=== PATIENT | female | born 1945 | race Two or more races ===

== ENCOUNTER 2017-07-03 14:51 | Emergency (ER) | payer OTHER, MEDICARE ==
[2017-07-03] MEDS ORDERED: Morphine 2 MG/ML Syringe IVPUSH ONE (15:09)
[2017-07-03] MEDS: Morphine 4 MG/ML Syringe IVPUSH ONE ×2 (15:10→15:53)
[2017-07-03] MEDS ORDERED: Morphine 4 MG/ML Syringe ONE (15:12)
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
[2017-07-03] MEDS ORDERED: Iopamidol 755 Mg/ML 100 ML Bottle IV ONE (15:35)
[2017-07-03] MEDS ORDERED: Sodium Chloride 0.9% 1,000 ML IV SCH (15:45)
[2017-07-03] MEDS ORDERED: Morphine 4 MG/ML Syringe IVPUSH ONE (15:48)
[2017-07-03] MEDS ORDERED: Ketorolac 30 MG/ML SDV IVPUSH ONE (16:08)
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
[2017-07-03] MEDS ORDERED: Morphine 4 MG/ML Syringe IM ONE (17:22)
[2017-07-03 18:33] VITALS: BP 122/68
[2017-07-03] MEDS ORDERED: Acetaminophen/HYDROcodone 325-5 MG Tab PO ONE (19:25)
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
== END 2017-07-03 19:35 | disposition home or self-care (01) ==
LOC: FB.ED 14:51
DX: S13.4XXA Sprain of ligaments of cervical spine, initial encounter (principal); S50.01XA Contusion of right elbow, initial encounter; E11.9 Type 2 diabetes mellitus without complications; V89.2XXA Person injured in unspecified motor-vehicle accident, traffic, initial encounter
CPT/HCPCS: 36415; 70450; 71010; 71260; 72125; 72128; 72131; 72170; 73030; 73080; 74177; 80053; 81001; 82150; 84484; 85025; 85610; 93005; 96361; 96372; 96374; 96375; 99285; A9270; J1885; J2270; J7040; Q9967

== ENCOUNTER 2017-09-13 08:00 | Day surgery (SDC) | payer BC, MEDICARE, OTHER ==
[2017-09-13] MEDS ORDERED: fentaNYL 100 MCG/2 ML SDV IV ONE (08:01)
[2017-09-13] MEDS ORDERED: Midazolam 1 MG/ML 2 ML SDV IV ONE (08:01)
[2017-09-13] MEDS ORDERED: Propofol 200 MG/20 ML SDV IV ONE (08:01)
[2017-09-13] MEDS ORDERED: Lactated Ringers 1,000 ML IV SCH (08:15)
--- NOTE | 2017-09-13 10:19 | PCM.OPNOTE ---
- General Post-Op/Procedure Note Date of Surgery/Procedure: 09/13/17 Operative Procedure(s): c scope with bx Findings: ascending colon polyp Pre Op Diagnosis: screening Post-Op Diagnosis: ascending colon polyp Anesthesia Technique: MAC Primary Surgeon: Nish Salcedo Anesthesia Provider: Rg Khan Pathology: ascending colon polyp Complications: None Condition: Good Free Text/Narrative:: see dictation
[2017-09-13 11:38] VITALS: BP 112/64
--- NOTE | 2017-09-13 16:00 | OR ---
DATE OF OPERATION: 09/13/2017 SURGEON: Nish Salcedo MD PREOPERATIVE DIAGNOSIS: Need for screening C-scope. POSTOPERATIVE DIAGNOSIS: Ascending colon polyp. INDICATIONS FOR PROCEDURE: This 72-year-old white female presents for screening colonoscopy, offered and accepted same. DESCRIPTION OF OPERATION: After an excellent IV sedation was administered, digital rectal exam was performed. No marked abnormality was noted. Flexible colonoscope was inserted and advanced without difficulty to the cecum. The prep was excellent. The following findings were noted. Ascending colon, small polypoid lesion, biopsied with cold biopsy forceps and sent for permanent. Transverse colon, unremarkable. Descending colon, unremarkable. Sigmoid and rectum unremarkable. Colon was deflated. Scope was removed. The patient tolerated the procedure well and was taken to recovery room in a good condition. Results by letter. /[id number] /MODL
== END 2017-09-13 11:20 | disposition home or self-care (01) ==
LOC: FB.SDS 08:00
PROVIDERS: ATTEND Surgery
DX: Z12.11 Encounter for screening for malignant neoplasm of colon (principal); D12.2 Benign neoplasm of ascending colon; I10 Essential (primary) hypertension; E11.9 Type 2 diabetes mellitus without complications; Z88.8 Allergy status to other drugs, medicaments and biological substances; Z79.82 Long term (current) use of aspirin; Z79.4 Long term (current) use of insulin; Z79.899 Other long term (current) drug therapy
CPT/HCPCS: 00812; 45380; 82962; 88305; J2250; J2704; J3010; J7120

== ENCOUNTER 2019-07-29 01:58 | Emergency (ER) | payer MEDICARE, OTHER ==
[2019-07-29] MEDS ORDERED: Sodium Chloride 0.9% 10 ML Syringe FLUSH PRN (02:31)
[2019-07-29] MEDS ORDERED: Aspirin 81 MG Tab.Chew PO ONE (02:33)
[2019-07-29] MEDS ORDERED: Nitroglycerin 0.4 MG Tab.SL SL ONE (02:33)
[2019-07-29 02:54] VITALS: BP 142/61
[2019-07-29 03:10] VITALS: PULSE 76
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
== END 2019-07-29 03:43 | disposition home or self-care (01) ==
LOC: FB.ED 01:58
DX: R07.89 Other chest pain (principal); I10 Essential (primary) hypertension; I25.2 Old myocardial infarction; E11.9 Type 2 diabetes mellitus without complications; J44.9 Chronic obstructive pulmonary disease, unspecified; I25.10 Atherosclerotic heart disease of native coronary artery without angina pectoris; Z86.73 Personal history of transient ischemic attack (TIA), and cerebral infarction without residual deficits; Z79.899 Other long term (current) drug therapy; Z79.82 Long term (current) use of aspirin; Z88.5 Allergy status to narcotic agent; Z79.84 Long term (current) use of oral hypoglycemic drugs
CPT/HCPCS: 36415; 80048; 82962; 84484; 85025; 93005; 93010; 99283; 99285; A9270

== ENCOUNTER 2021-01-05 16:15 | Emergency (ER) | payer MEDICARE ==
[2021-01-05] MEDS: Sodium Chloride 0.9% 10 ML Syringe FLUSH PRN ×2 (16:20→16:53)
[2021-01-05] MEDS ORDERED: Morphine 2 MG/ML SYRINGE IVPUSH STA (16:45)
[2021-01-05 16:59] VITALS: BP 156/96; PULSE 82
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
== END 2021-01-05 17:30 ==
LOC: FB.ED 16:15
DX: I63.9 Cerebral infarction, unspecified (principal); E11.9 Type 2 diabetes mellitus without complications; I25.10 Atherosclerotic heart disease of native coronary artery without angina pectoris; I10 Essential (primary) hypertension; I25.2 Old myocardial infarction; J44.9 Chronic obstructive pulmonary disease, unspecified; Z88.5 Allergy status to narcotic agent; Z79.899 Other long term (current) drug therapy
CPT/HCPCS: 36415; 70450; 71045; 80053; 82947; 84484; 85025; 85610; 85730; 93005; 93010; 96374; 99285; 99285-25; J2270

== ENCOUNTER 2021-11-25 19:25 | Emergency (ER) | payer BC, MEDICARE ==
[2021-11-25 20:50] VITALS: BP 156/87; PULSE 77
== END 2021-11-25 20:35 ==
LOC: FB.ED 19:25
DX: I63.9 Cerebral infarction, unspecified (principal); I25.10 Atherosclerotic heart disease of native coronary artery without angina pectoris; I10 Essential (primary) hypertension; I25.2 Old myocardial infarction; J44.9 Chronic obstructive pulmonary disease, unspecified; E11.9 Type 2 diabetes mellitus without complications; Z86.73 Personal history of transient ischemic attack (TIA), and cerebral infarction without residual deficits; Z88.5 Allergy status to narcotic agent; Z79.82 Long term (current) use of aspirin; Z79.899 Other long term (current) drug therapy; Z20.822 Contact with and (suspected) exposure to COVID-19
CPT/HCPCS: 36415; 70450; 80053; 85025; 85610; 99285-25; U0002

== ENCOUNTER 2023-02-16 05:43 | Emergency (ER) | payer BC, MEDICARE ==
[2023-02-16 06:46] LABS: HEMATOCRIT 35.9 % (34.2-48.2); HEMOGLOBIN 12.5 g/dL (11.4-15.5); MEAN CORPUSCULAR HEMOGLOBIN 30.2 pg (23.9-33.9); MEAN CORPUSCULAR HGB CONC 34.9 g/dL (31.9-34.8); MEAN CORPUSCULAR VOLUME 86.5 fL (76.7-100.5); MEAN PLATELET VOLUME 8.8 fL (7.1-12.4); PLATELET COUNT,PLT 187 x10(3)uL (151-488); RED BLOOD CELL COUNT 4.15 x10(6)uL (3.60-5.20); RED CELL DISTRIBUTION WIDTH 13.8 % (12.3-16.5)
[2023-02-16 06:48] LABS: BLOOD UREA NITROGEN,BUN 15 mg/dL (7-18); BUN/CREATININE RATIO 18.8 (9-20); CALCIUM 9.3 mg/dL (8.6-10.2); CARBON DIOXIDE,CO2 24 mmol/L (21-32); CHLORIDE,CL 106 mmol/L (100-110); CREATININE 0.8 mg/dL (0.55-1.02); EST CRCL DRUG DOSING (CG) 45.14 mL/min; ESTIMATED GFR 76 mL/min (>60); GLUCOSE RANDOM 229 mg/dL (80-116); POTASSIUM,K 3.7 mmol/L (3.5-5.3); SODIUM,NA 140 mmol/L (135-145)
[2023-02-16 06:53] LABS: A/G RATIO 0.8; ALANINE AMINOTRANSFERASE,ALT 23 U/L (12-36); ALBUMIN 3.3 g/dL (3.2-4.6); ALKALINE PHOSPHATASE 79 IU/L (56-112); ASPARTATE AMNIOTRANSFERASE,AST 27 IU/L (5-25); BILIRUBIN TOTAL 0.5 mg/dL (0.1-1.3); PROTEIN TOTAL,TP 7.3 g/dL (6.0-8.0)
[2023-02-16 07:00] LABS: INR 1.02 (1.00-1.24); PROTHROMBIN TIME 10.5 sec (9.0-11.1); PTT,PARTIAL THROMBOPLSTIN TIME 27.7 SECONDS (24.4-33.2)
[2023-02-16 07:07] LABS: EOSINOPHILS PERCENT MAN 1 % (0-5); LYMPHOCYTES PERCENT MAN 6 % (13-37); MONOCYTES PERCENT MAN 5 % (4-12); SEG NEUTROPHILS PERCENT MAN 88 % (46-82)
[2023-02-16] MEDS: traMADol 50 MG Tab PO ONE (08:34)
[2023-02-16] MEDS: Acetaminophen 500 MG Tab PO ONE (08:34)
[2023-02-16 10:11] VITALS: BP 155/69; PULSE 57
== END 2023-02-16 09:15 | disposition home or self-care (01) ==
LOC: FB.ED 05:43
DX: S10.93XA Contusion of unspecified part of neck, initial encounter (principal); S40.012A Contusion of left shoulder, initial encounter; S40.011A Contusion of right shoulder, initial encounter; S20.213A Contusion of bilateral front wall of thorax, initial encounter; I25.10 Atherosclerotic heart disease of native coronary artery without angina pectoris; I10 Essential (primary) hypertension; J44.9 Chronic obstructive pulmonary disease, unspecified; E11.9 Type 2 diabetes mellitus without complications; Z86.16 Personal history of COVID-19; Z86.73 Personal history of transient ischemic attack (TIA), and cerebral infarction without residual deficits; Z79.82 Long term (current) use of aspirin; Z79.899 Other long term (current) drug therapy; Z79.84 Long term (current) use of oral hypoglycemic drugs; W18.30XA Fall on same level, unspecified, initial encounter
CPT/HCPCS: 36415; 71111; 72040; 72070; 72100; 73030-50; 73080-RT; 80053; 85025; 85610; 85730; 99283; A9270-GY

== ENCOUNTER 2023-11-05 07:34 | Inpatient (IN) | payer MEDICARE ==
[2023-11-05] MEDS ORDERED: Polyethylene Glycol 3350 Powder 17 GM Packet PO PRN (13:37)
[2023-11-05] MEDS ORDERED: Albuterol 6.7 GM Inhaler INH PRN (13:41)
[2023-11-05] MEDS ORDERED: Albuterol/Ipratropium 3.0-0.5 MG/3 ML Neb Soln INH PRN (13:41)
[2023-11-05] MEDS ORDERED: Sennosides/Docusate Sodium 50-8.6 MG Tab PO PRN (13:52)
[2023-11-05] MEDS: Gabapentin 300 MG Cap PO SCH (15:22)
[2023-11-05] MEDS: tiZANidine 4 MG Tab PO SCH (21:25)
[2023-11-05] MEDS: Diclofenac Sodium 1% Gel 100 GM Tube TOP SCH (21:27)
[2023-11-05] MEDS: atorvaSTATin 20 MG Tab PO SCH (21:28)
[2023-11-06] MEDS: Pantoprazole 40 MG Tab.CR PO SCH (05:53)
[2023-11-06] MEDS: traMADol 50 MG Tab PO PRN (05:58)
[2023-11-06] MEDS: Escitalopram 20 MG Tab PO SCH (08:28)
[2023-11-06] MEDS: Aspirin 81 MG Tab.EC PO SCH (08:29)
[2023-11-06] MEDS: Multivitamins with Iron/Calcium/Folic Acid/Minerals Tab PO SCH (08:29)
[2023-11-06] MEDS: Lidocaine 4% 1 each Patch TOP SCH (08:29)
[2023-11-06] MEDS: Lisinopril 10 MG Tab PO SCH (08:30)
[2023-11-09 15:10] VITALS: BP 138/73; PULSE 71
== END 2023-11-09 11:45 | disposition home or self-care (01) | DRG 561 ==
LOC: FB.MS 12:49
PROVIDERS: ADMIT Family Medicine; ATTEND Internal Medicine
DX: S42.002D Fracture of unspecified part of left clavicle, subsequent encounter for fracture with routine healing (principal); R10.13 Epigastric pain; H54.7 Unspecified visual loss; I25.10 Atherosclerotic heart disease of native coronary artery without angina pectoris; I10 Essential (primary) hypertension; I27.20 Pulmonary hypertension, unspecified; J44.9 Chronic obstructive pulmonary disease, unspecified; K59.09 Other constipation; M54.2 Cervicalgia; G89.29 Other chronic pain; E11.9 Type 2 diabetes mellitus without complications; G70.00 Myasthenia gravis without (acute) exacerbation; R91.1 Solitary pulmonary nodule; Z96.659 Presence of unspecified artificial knee joint; Z88.5 Allergy status to narcotic agent; Z79.51 Long term (current) use of inhaled steroids; Z79.4 Long term (current) use of insulin; Z79.899 Other long term (current) drug therapy; I25.2 Old myocardial infarction; Z86.73 Personal history of transient ischemic attack (TIA), and cerebral infarction without residual deficits; Z98.49 Cataract extraction status, unspecified eye; Z90.49 Acquired absence of other specified parts of digestive tract; Z98.890 Other specified postprocedural states; W19.XXXD Unspecified fall, subsequent encounter
CPT/HCPCS: 97110-GP; 97161-GP; 97165-GO; 97530-GO; 97530-GP; 97535-GO; 99305; 99315; A9270-GY